=== PATIENT | male | born 1975 | race Caucasian/White ===

== ENCOUNTER 2017-08-13 11:40 | Emergency (ER) | payer OTHER ==
[2017-08-13] MEDS ORDERED: Cyclobenzaprine 10 MG Tab ONE (12:00)
[2017-08-13] MEDS ORDERED: Acetaminophen/HYDROcodone 325-5 MG Tab ONE (12:00)
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
--- NOTE | 2017-08-14 08:27 | CR ---
DATE OF SERVICE: 08/13/17 CLINICAL DATA: left shoulder dislocation LEFT SHOULDER: There is a questionable faint lucency inferior to the glenoid, which may represent a nondisplaced fracture. Additional imaging is recommended if clinically indicated. No other fractures. No dislocation. No lytic or blastic bone lesions. [id number] [facility]
== END 2017-08-13 12:57 | disposition home or self-care (01) ==
LOC: LB.ED 11:40
DX: S42.102A Fracture of unspecified part of scapula, left shoulder, initial encounter for closed fracture (principal); Z88.0 Allergy status to penicillin; W19.XXXA Unspecified fall, initial encounter
CPT/HCPCS: 73030; 99284; A9270